=== PATIENT | male | born 1950 | race Caucasian/White ===

== ENCOUNTER 2020-05-15 09:50 | Outpatient (REF) | payer MEDICARE, OTHER, SELFPAY ==
[2020-05-15 10:44] LABS: Hemoglobin 15.4 g/dl (14.0-18.0); Imm Gran Abs Auto 0.02 X10*3/uL (0.00-0.03); Imm Gran Pct Auto 0.3 % (0.0-0.4); MANUAL DIFF FLAG SCAN; PLT CLUMP 1; Red Cell Distribution Width 11.7 % (11.0-16.0); SCAN SMEAR FLAG 1
[2020-05-15 10:46] LABS: Basophils Absolute Auto 0.1 X10*3/uL (0.0-0.2); Basophils Percent Auto 1.2 % (0-2); Eosinophils Absolute Auto 0.2 X10*3/uL (0.0-0.4); Eosinophils Percent Auto 2.2 % (0-4); Hematocrit 45.8 % (42-52); Lymphocytes Percent Auto 28.5 % (20-40); Mean Corpuscular HGB Conc 33.6 g/dl (31.0-36.0); Mean Corpuscular Volume 92.3 fL (80-98); Mean Platelet Volume 11.4 fL (9.4-12.4); Monocytes Absolute Auto 0.5 X10*3/uL (0.1-1.2); Monocytes Percent Auto 7.6 % (2-11); Neutrophils Absolute Auto 4.2 X10*3/uL (2.0-8.3); Neutrophils Percent Auto 60.2 % (45-73); Platelet Count 130 X10*3/uL (160-400); Red Blood Count 4.96 X10*6/uL (4.60-5.80)
[2020-05-15 11:32] LABS: Alanine Aminotransferase 21 U/L (0-40); Albumin Level 3.9 g/dL (3.5-5.0); Alkaline Phosphatase 56 U/L (39-117); Anion Gap 12 (12-20); Aspartate Amino Transferase 20 U/L (5-37); Bilirubin Total 0.5 mg/dL (0.0-1.0); Blood Urea Nitrogen 17 mg/dL (9-16); Calcium 8.7 mg/dL (8.4-10.2); Carbon Dioxide 27 mmol/L (22-29); Chloride 106 mmol/L (96-108); Cholesterol 243 mg/dL; Estimated Glomerular Filt Rate > 60; Glucose Fasting 104 mg/dL (60-99); HDL Cholesterol 51 mg/dL; LDL Cholesterol Calculated 162 mg/dl; Potassium 5.2 mmol/l (3.3-5.1); Sodium 140 mmol/L (135-145); Total Protein 6.3 g/dL (6.5-8.0); Triglycerides 150 mg/dL
== END 2020-05-15 09:51 | disposition home or self-care (01) ==
LOC: HO.10HDL 09:50
PROVIDERS: Visit Provider Internal Medicine
DX: I10 Essential (primary) hypertension (principal); E78.00 Pure hypercholesterolemia, unspecified
CPT/HCPCS: 36415; 80053; 80061; 85025

== ENCOUNTER 2020-07-29 11:29 | Outpatient (REF) | payer MEDICARE, OTHER, SELFPAY | END 2020-07-29 11:30 | disposition home or self-care (01) | LOC: HO.10HDL 11:29 | PROVIDERS: Visit Provider Urology | DX: R97.20 Elevated prostate specific antigen [PSA] (principal) | CPT/HCPCS: 36415; 84153 ==

== ENCOUNTER → 2020-08-02 09:06 | Outpatient (BNVA) | payer MEDICARE, OTHER, SELFPAY | PROVIDERS: PCP Internal Medicine; Visit Provider Urology | DX: R97.20 Elevated prostate specific antigen [PSA] (principal) | CPT/HCPCS: 99212 ==

== ENCOUNTER 2020-12-04 11:33 | Outpatient (REF) | payer MEDICARE, OTHER, SELFPAY ==
[2020-12-04 15:04] LABS: PSA,Total (Free>4and<10) 8.67 ng/mL (0.00-4.00)
[2020-12-05 11:46] LABS: Free Prostate Spec Ag 0.7 ng/mL; Percent Free Prostate Spec Ag 9 % (calc) (>25); Prostate Specific Ag Total 7.6 ng/mL (< OR = 4.0)
== END 2020-12-04 11:34 | disposition home or self-care (01) ==
LOC: HO.10HDL 11:33
PROVIDERS: Visit Provider Urology
DX: R97.20 Elevated prostate specific antigen [PSA] (principal); N40.1 Benign prostatic hyperplasia with lower urinary tract symptoms; N13.8 Other obstructive and reflux uropathy; Z12.5 Encounter for screening for malignant neoplasm of prostate
CPT/HCPCS: 36415; 84153; 84154

== ENCOUNTER → 2020-12-10 13:38 | Outpatient (BNVA) | payer MEDICARE, OTHER, SELFPAY | PROVIDERS: PCP Internal Medicine; Visit Provider Urology | DX: Z13.89 Encounter for screening for other disorder (principal) | CPT/HCPCS: Q3014 ==

== ENCOUNTER 2021-03-18 10:29 | Outpatient (REF) | payer MEDICARE, OTHER, SELFPAY ==
[2021-03-18 13:11] LABS: MANUAL DIFF FLAG NO
[2021-03-18 13:16] LABS: Basophils Percent Auto 0.6 % (0-2); Eosinophils Absolute Auto 0.1 X10*3/uL (0.0-0.4); Eosinophils Percent Auto 1.5 % (0-4); Hematocrit 45.9 % (42-52); Hemoglobin 15.6 g/dl (14.0-18.0); Imm Gran Abs Auto 0.02 X10*3/uL (0.00-0.03); Imm Gran Pct Auto 0.3 % (0.0-0.4); Lymphocytes Absolute Auto 1.6 X10*3/uL (1.2-4.9); Lymphocytes Percent Auto 23.9 % (20-40); Mean Corpuscular Hemoglobin 31.5 pg (27.0-33.0); Mean Corpuscular Volume 92.5 fL (80-98); Monocytes Absolute Auto 0.5 X10*3/uL (0.1-1.2); Monocytes Percent Auto 8.3 % (2-11); Neutrophils Absolute Auto 4.2 X10*3/uL (2.0-8.3); Neutrophils Percent Auto 65.4 % (45-73); Platelet Count 142 X10*3/uL (160-400); Red Blood Count 4.96 X10*6/uL (4.60-5.80); Red Cell Distribution Width 12.2 % (11.0-16.0); White Blood Count 6.5 X10*3/uL (4.8-10.8)
[2021-03-18 13:17] LABS: Glucose Urine UA NEG (NEG); Leukocyte Esterase Urine TRACE (NEG); Nitrite Urine NEG (NEG); Urine Blood NEG (NEG); Urine Ketones NEG (NEG); Urine Protein NEG (NEG-TRACE)
[2021-03-18 13:30] LABS: Appearance Urine CLEAR; Color Urine YELLOW
[2021-03-18 13:31] LABS: RBC Urine 0 /HPF (0); Squamous Epithelial Cell Urine TRACE /LPF
[2021-03-18 13:42] LABS: Alanine Aminotransferase 21 U/L (0-40); Alkaline Phosphatase 55 U/L (39-117); Anion Gap 13 (12-20); Aspartate Amino Transferase 18 U/L (5-37); Bilirubin Total 0.8 mg/dL (0.0-1.0); Blood Urea Nitrogen 16 mg/dL (9-16); Calcium 8.8 mg/dL (8.4-10.2); Carbon Dioxide 25 mmol/L (22-29); Chloride 107 mmol/L (96-108); Cholesterol 231 mg/dL; Estimated Glomerular Filt Rate > 60; Glucose Fasting 107 mg/dL (60-99); HDL Cholesterol 49 mg/dL; LDL Cholesterol Calculated 139 mg/dl; Potassium 4.7 mmol/L (3.3-5.1); Sodium 140 mmol/L (135-145); Total Protein 6.4 g/dL (6.5-8.0); Triglycerides 217 mg/dL
[2021-03-18 14:03] LABS: Prostate Specific Antigen Scr 1.43 ng/mL (<0.05-4.0)
== END 2021-03-18 10:30 | disposition home or self-care (01) ==
LOC: HO.10HDL 10:29
PROVIDERS: PCP Internal Medicine; Visit Provider Internal Medicine
DX: E78.00 Pure hypercholesterolemia, unspecified (principal); I10 Essential (primary) hypertension; R97.20 Elevated prostate specific antigen [PSA]; Z12.5 Encounter for screening for malignant neoplasm of prostate
CPT/HCPCS: 36415; 80053; 80061; 81001; 84153; 85025

== ENCOUNTER 2021-04-09 11:34 | Outpatient (REF) | payer MEDICARE, OTHER, SELFPAY | END 2021-04-09 11:35 | disposition home or self-care (01) | LOC: HO.10HDL 11:34 | PROVIDERS: Visit Provider Urology | DX: N13.8 Other obstructive and reflux uropathy (principal); N40.1 Benign prostatic hyperplasia with lower urinary tract symptoms | CPT/HCPCS: 36415; 84153 ==

== ENCOUNTER → 2021-04-15 09:33 | Outpatient (BNVA) | payer MEDICARE, OTHER, SELFPAY | PROVIDERS: PCP Internal Medicine; Visit Provider Urology | DX: R97.20 Elevated prostate specific antigen [PSA] (principal) | CPT/HCPCS: Q3014 ==

== ENCOUNTER 2021-10-01 11:17 | Outpatient (REF) | payer MEDICARE, OTHER, SELFPAY | END 2021-10-01 11:18 | disposition home or self-care (01) | LOC: HO.10HDL 11:17 | PROVIDERS: Visit Provider Urology | DX: R97.20 Elevated prostate specific antigen [PSA] (principal); N40.1 Benign prostatic hyperplasia with lower urinary tract symptoms; N13.8 Other obstructive and reflux uropathy; Z12.5 Encounter for screening for malignant neoplasm of prostate | CPT/HCPCS: 36415; 84153 ==

== ENCOUNTER → 2021-10-14 14:08 | Outpatient (BNVA) | payer MEDICARE, OTHER, SELFPAY | PROVIDERS: PCP Internal Medicine; Visit Provider Urology | DX: Z13.89 Encounter for screening for other disorder (principal) | CPT/HCPCS: Q3014 ==

== ENCOUNTER 2022-01-15 09:18 | Outpatient (REF) | payer MEDICARE, OTHER, SELFPAY ==
[2022-01-15 10:32] LABS: MANUAL DIFF FLAG NO
[2022-01-15 10:38] LABS: Basophils Absolute Auto 0.1 X10*3/uL (0.0-0.2); Basophils Percent Auto 0.8 % (0-2); Eosinophils Absolute Auto 0.1 X10*3/uL (0.0-0.4); Eosinophils Percent Auto 1.5 % (0-4); Hematocrit 45.4 % (42.0-52.0); Hemoglobin 15.1 g/dl (14.0-18.0); Imm Gran Abs Auto 0.02 X10*3/uL (0.00-0.03); Imm Gran Pct Auto 0.3 % (0.0-0.4); Lymphocytes Absolute Auto 1.7 X10*3/uL (1.2-4.9); Lymphocytes Percent Auto 23.9 % (20-40); Mean Corpuscular HGB Conc 33.3 g/dl (31.0-36.0); Mean Corpuscular Hemoglobin 30.6 pg (27.0-33.0); Mean Corpuscular Volume 91.9 fL (80.0-98.0); Mean Platelet Volume 11.6 fL (9.4-12.4); Monocytes Absolute Auto 0.5 X10*3/uL (0.1-1.2); Monocytes Percent Auto 7.2 % (2-11); Neutrophils Absolute Auto 4.8 x10*3/uL (2.0-8.3); Neutrophils Percent Auto 66.3 % (45-73); Platelet Count 133 X10*3/uL (160-400); Red Blood Count 4.94 X10*6/uL (4.60-5.80); Red Cell Distribution Width 11.9 % (11.0-16.0); White Blood Count 7.2 X10*3/uL (4.8-10.8)
[2022-01-15 11:12] LABS: Alanine Aminotransferase 21 U/L (0-40); Albumin Level 3.8 g/dL (3.5-5.0); Alkaline Phosphatase 66 U/L (39-117); Anion Gap 10 (12-20); Aspartate Amino Transferase 17 U/L (5-37); Bilirubin Total 0.7 mg/dL (0.0-1.0); Blood Urea Nitrogen 16 mg/dL (9-16); Calcium 8.7 mg/dL (8.4-10.2); Carbon Dioxide 28 mmol/L (22-29); Chloride 105 mmol/L (96-108); Cholesterol 218 mg/dL; Estimated Glomerular Filt Rate > 60; Glucose Fasting 102 mg/dL (60-99); HDL Cholesterol 41 mg/dL; LDL Cholesterol Calculated 160 mg/dl; Potassium 4.6 mmol/L (3.3-5.1); Sodium 138 mmol/L (135-145); Triglycerides 89 mg/dL
== END 2022-01-15 09:19 | disposition home or self-care (01) ==
LOC: HO.10HDL 09:18
PROVIDERS: Visit Provider Internal Medicine
DX: I10 Essential (primary) hypertension (principal); E78.00 Pure hypercholesterolemia, unspecified
CPT/HCPCS: 36415; 80053; 80061; 85025

== ENCOUNTER 2022-04-08 11:29 | Outpatient (REF) | payer MEDICARE, OTHER, SELFPAY ==
[2022-04-08 14:40] LABS: PSA,Total (Free>4and<10) 0.75 ng/mL (0.00-4.00)
== END 2022-04-08 11:30 | disposition home or self-care (01) ==
LOC: HO.10HDL 11:29
PROVIDERS: Visit Provider Urology
DX: N40.1 Benign prostatic hyperplasia with lower urinary tract symptoms (principal); N13.8 Other obstructive and reflux uropathy; Z12.5 Encounter for screening for malignant neoplasm of prostate
CPT/HCPCS: 36415; 84153

== ENCOUNTER → 2022-04-17 12:51 | Outpatient (BNVA) | payer MEDICARE, OTHER, SELFPAY | PROVIDERS: PCP Internal Medicine; Visit Provider Urology | DX: N40.0 Benign prostatic hyperplasia without lower urinary tract symptoms (principal); R97.20 Elevated prostate specific antigen [PSA] | CPT/HCPCS: Q3014 ==

== ENCOUNTER 2022-08-12 07:04 | Day surgery (SDC) | payer MEDICARE, OTHER, SELFPAY ==
--- NOTE | 2022-08-11 13:15 | HO.ANESPROP2 ---
Documented by User: Nga Fuchs NP 08/11/22 13:20 HPI - Anesthesia Eval Consult details Narrative: 72yo M for Colonoscopy PMF Active Problems Active Problems: All Active Problems (Updated 08/11/22 @ 12:35 by Hollie Villa RN) Elevated PSA (Acute) BPH (benign prostatic hyperplasia) (Acute) Past Medical History Medical History BPH (benign prostatic hyperplasia) Elevated PSA Enlarged prostate with lower urinary tract symptoms (LUTS) Erectile dysfunction HTN (hypertension) Hyperlipidemia Nocturia Tubular adenoma Surgical History Surgical History H/O oral surgery History of surgery Social History Social History Patient Tobacco Use Status: Current everyday Tobacco user Tobacco use type: Cigar Cigarettes Per Day: 2 Use of substances other than those prescribed or required for medical reasons: No Are you DNR?: No Advance Directives: No Advance Directives Information Provided: Yes Meds Allergies Allergy/AdvReac Type Severity Reaction Status Date / Time Vaseline Allergy Unknown swelling Uncoded 04/16/22 15:17 Home Medications Medication Instructions Recorded Confirmed Last Taken Type atenolol 50 mg tablet 50 mg PO DAILY 04/15/21 Unknown History Exam Exam Date and Time: August 11, 2022 1315 Assessment and Plan Assessment Anesthesia Assessment: Chart Reviewed Documented by User: Jodi Viramontes MD 08/12/22 07:52 [facility] Past Medical History Medical History BPH (benign prostatic hyperplasia) Elevated PSA Enlarged prostate with lower urinary tract symptoms (LUTS) Erectile dysfunction HTN (hypertension) Hyperlipidemia Nocturia Tubular adenoma Family History Family history of problems with anesthesia: No Surgical History Surgical History H/O oral surgery History of surgery History of Problems with Anesthesia: No Social History Social History Patient Tobacco Use Status: Current everyday Tobacco user Tobacco use type: Cigar Cigarettes Per Day: 2 Use of substances other than those prescribed or required for medical reasons: No Are you DNR?: No Advance Directives: No Advance Directives Information Provided: Yes Meds Allergies Allergy/AdvReac Type Severity Reaction Status Date / Time Vaseline Allergy Unknown swelling Uncoded 04/16/22 15:17 Home Medications Medication Instructions Recorded Confirmed Last Taken Type atenolol 50 mg tablet 50 mg PO DAILY 04/15/21 Unknown History Exam Airway Mallampati Class: II TM Dist: >3cm Neck ROM: Full Denture: Upper and Lower Heart: RR Lungs: CTA Assessment and Plan Final Anesthetic Review Family History of Problems with Anesthesia: No History of Problems with Anesthesia: No NPO: Yes ASA Class: II Final Preanesthetic Review: No Changes in Pt Med Stat, Meds/Allgs Chart Reviewed, Consent Obtained/Reviewed and Anes Risks/Benef Reviewed Patient Risk: Low Procedure Risk: Low Anesthetic Plan Anesthetic Plan: MAC: Disposition: Standard PACU
[2022-08-12 07:24] VITALS: BMI 27.6
[2022-08-12 07:39] VITALS: BP 127/74; PULSE 62; RESP 16; TEMP 36.5; O2SAT 98
[2022-08-12] MEDS: Lactated Ringers 1,000 ML 100 ML IVCONT (07:52)
[2022-08-12 08:58] VITALS: BP 113/63; PULSE 63; RESP 18; TEMP 36.4; O2SAT 97
--- NOTE | 2022-08-12 09:01 | P.BOP_ITS ---
Brief Operative Note Date of Service: 08/12/22 Pre-op diagnosis: Screening Post-op diagnosis: other (Colon polyps) Procedure: Colonoscopy to the cecum and TI with hot snare polypectomy x 4 with placement of 1 Resolution clip on one of the rectal polypectomy sites Surgeon: Kevin Porras Anesthesia: MAC Was an Furniture Painter used for this Procedure?: No Estimated blood loss (mL): 2.0 Pathology: other (A. Transverse colon polyp B. Rectal polyps ) Condition: stable Disposition: PACU
[2022-08-12 09:13] VITALS: BP 127/67; PULSE 58; RESP 18; TEMP 36.1; O2SAT 97
--- NOTE | 2022-08-12 10:14 | OP_ITS ---
SURGEON: Kevin Porras MD INDICATIONS: The patient presents for evaluation of colorectal cancer screening and personal history of tubular adenoma of the colon. Full consent has been obtained from him for this, including risks of bleeding and perforation. PREOPERATIVE DIAGNOSIS: Colorectal cancer screening and personal history of tubular adenoma of the colon. POSTOPERATIVE DIAGNOSIS: Colorectal cancer screening and personal history of tubular adenoma of the colon, colon polyps, diverticulosis, internal hemorrhoids. PROCEDURE PERFORMED: Colonoscopy to the cecum and terminal ileum with hot snare polypectomy x4 and placement of a single Resolution clip on one of the rectal polypectomy sites. ESTIMATED BLOOD LOSS: COMPLICATIONS: ANESTHESIA: Medication Used: Monitored anesthesia care. ASSISTANTS: SPECIMENS: DESCRIPTION OF PROCEDURE: The patient was placed in the left lateral decubitus position. The digital rectal exam revealed no abnormalities. The Olympus video pediatric colonoscope was entered into the rectum and advanced to the cecum with the assistance of abdominal wall pressure. Once in the cecum, I did identify normal-appearing cecal pouch with appendiceal orifice and a normal-appearing ileocecal valve. The terminal ileum was cannulated and appeared normal. The scope was withdrawn back in the colon. The entire cecum and the ileocecal valve appeared normal. The scope was then slowly withdrawn assessing all mucosal surfaces carefully. For the most part, preparation was very good throughout the colon, although there was some residual liquid and solid stool in the sigmoid colon, which was all irrigated and suctioned away as best as possible. In the transverse colon, was an approximately 5 mm grossly adenomatous polyp, which was removed by hot snare polypectomy and recovered by suction. The polypectomy site appeared clean, without any sign of residual polyp nor bleeding. I did not visualize any sign of colitis nor angiodysplasia. There was a mild amount of diverticulosis in the ascending colon and a moderate amount of diverticulosis in the sigmoid colon. In the rectum, there were three polyps. One was approximately 12 to 15 mm in size and somewhat friable. This was removed by hot snare polypectomy and recovered by withdrawing it on the tip of the scope. The scope was advanced back to the polypectomy site, which appeared clean, without any sign of residual polyp nor bleeding. A single resolution clip was applied to the polypectomy site with good deployment and good hemostasis. Also in the rectum, were two polyps between 8 and 10 mm in size, which were each snared with the hot snare polypectomy and recovered by suction. Both polypectomy sites appeared clean, without any sign of residual polyp nor bleeding. The scope was retroflexed visualizing some small internal hemorrhoids, but no other pathology. The scope was straightened and withdrawn from the patient. He tolerated the procedure well and was returned to the recovery area in stable condition. IMPRESSION: 1. Colon polyps. 2. Diverticulosis. 3. Internal hemorrhoids. PLAN: The results of the pathology will be checked. I would recommend a repeat colonoscopy in 3 years for further surveillance. He was advised not to use any aspirin or NSAIDs for at least 1 week. MD OLYA Rodriguez/NASIM / [id number]
--- NOTE | 2022-08-12 11:49 | HO.ANESPROP2 ---
HPI - Anesthesia Eval Consult details Narrative: screening colon PMF Active Problems Active Problems: All Active Problems (Updated 08/11/22 @ 12:35 by Hollie Villa, RN) Elevated PSA (Acute) BPH (benign prostatic hyperplasia) (Acute) Past Medical History Medical History BPH (benign prostatic hyperplasia) Elevated PSA Enlarged prostate with lower urinary tract symptoms (LUTS) Erectile dysfunction HTN (hypertension) Hyperlipidemia Nocturia Tubular adenoma Family History Family history of problems with anesthesia: No Surgical History Surgical History H/O oral surgery History of surgery History of Problems with Anesthesia: No Social History Social History Patient Tobacco Use Status: Current everyday Tobacco user Tobacco use type: Cigar Cigarettes Per Day: 2 Use of substances other than those prescribed or required for medical reasons: No Are you DNR?: No Advance Directives: No Advance Directives Information Provided: Yes Meds Allergies Allergy/AdvReac Type Severity Reaction Status Date / Time Vaseline Allergy Unknown swelling Uncoded 04/16/22 15:17 Home Medications Medication Instructions Recorded Confirmed Last Taken Type atenolol 50 mg tablet 50 mg PO DAILY 04/15/21 08/12/22 Unknown History flaxseed oil PO DAILY 08/12/22 Unknown History Exam Exam Date and Time: August 12, 2022 1149 Height,Weight and Vital Signs: Height 5 ft 10.5 in Weight 88.451 kg Last Vital Signs Temp 97 F 08/12/22 09:13 Pulse 58 08/12/22 09:13 Resp 18 08/12/22 09:13 BP 127/67 08/12/22 09:13 Pulse Ox 97 08/12/22 09:13 O2 Del Method 08/12/22 09:13 Airway Mallampati Class: II TM Dist: >3cm Neck ROM: Full Denture: Upper and Lower Heart: rr Lungs: cta Assessment and Plan Assessment Anesthesia Assessment: Anesthesia Plan Discussed and Chart Reviewed Final Anesthetic Review Family History of Problems with Anesthesia: No History of Problems with Anesthesia: No NPO: Yes ASA Class: II Final Preanesthetic Review: No Changes in Pt Med Stat, Meds/Allgs Chart Reviewed, Consent Obtained/Reviewed and Anes Risks/Benef Reviewed Patient Risk: Low Procedure Risk: Low Anesthetic Plan Anesthetic Plan: MAC: Disposition: Standard PACU
== END 2022-08-12 10:13 | disposition home or self-care (01) ==
PROVIDERS: PCP Internal Medicine; Visit Provider Internal Medicine
PROC: 0DJD8ZZ Inspection of Lower Intestinal Tract, Via Natural or Artificial Opening Endoscopic (ICD-10-PCS; CPT 45378; principal; 2022-08-12 08:30)
DX: Z12.11 Encounter for screening for malignant neoplasm of colon (principal); Z86.010 Personal history of colon polyps; D12.8 Benign neoplasm of rectum; K63.5 Polyp of colon; K57.30 Diverticulosis of large intestine without perforation or abscess without bleeding; K64.8 Other hemorrhoids; I10 Essential (primary) hypertension; N40.0 Benign prostatic hyperplasia without lower urinary tract symptoms; Z79.899 Other long term (current) drug therapy; F17.210 Nicotine dependence, cigarettes, uncomplicated
CPT/HCPCS: 45385; 88305

== ENCOUNTER 2022-10-08 09:46 | Outpatient (REF) | payer MEDICARE, OTHER, SELFPAY ==
[2022-10-08 10:55] LABS: MANUAL DIFF FLAG NO
[2022-10-08 11:02] LABS: Basophils Absolute Auto 0.1 X10*3/uL (0.0-0.2); Basophils Percent Auto 1.1 % (0-2); Eosinophils Absolute Auto 0.1 X10*3/uL (0.0-0.4); Eosinophils Percent Auto 1.5 % (0-4); Hematocrit 46.8 % (42.0-52.0); Hemoglobin 15.9 g/dl (14.0-18.0); Imm Gran Abs Auto 0.03 X10*3/uL (0.00-0.03); Imm Gran Pct Auto 0.4 % (0.0-0.4); Lymphocytes Absolute Auto 1.9 X10*3/uL (1.2-4.9); Lymphocytes Percent Auto 25.9 % (20-40); Mean Corpuscular Hemoglobin 31.2 pg (27.0-33.0); Mean Corpuscular Volume 91.8 fL (80.0-98.0); Mean Platelet Volume 11.7 fL (9.4-12.4); Monocytes Absolute Auto 0.6 X10*3/uL (0.1-1.2); Monocytes Percent Auto 7.5 % (2-11); Neutrophils Absolute Auto 4.7 x10*3/uL (2.0-8.3); Neutrophils Percent Auto 63.6 % (45-73); Platelet Count 144 X10*3/uL (160-400); Red Cell Distribution Width 11.6 % (11.0-16.0); White Blood Count 7.4 X10*3/uL (4.8-10.8)
[2022-10-08 12:14] LABS: Alanine Aminotransferase 21 U/L (0-40); Albumin Level 3.9 g/dL (3.5-5.0); Alkaline Phosphatase 55 U/L (39-117); Anion Gap 10 (12-20); Aspartate Amino Transferase 18 U/L (5-37); Bilirubin Total 0.8 mg/dL (0.0-1.0); Blood Urea Nitrogen 18 mg/dL (9-16); Carbon Dioxide 30 mmol/L (22-29); Chloride 105 mmol/L (96-108); Estimated Glomerular Filt Rate > 60; Glucose Random 96 mg/dL (60-115); Sodium 140 mmol/L (135-145); Total Protein 6.2 g/dL (6.5-8.0)
== END 2022-10-08 09:47 | disposition home or self-care (01) ==
LOC: HO.10HDL 09:46
PROVIDERS: Visit Provider Internal Medicine
DX: J44.9 Chronic obstructive pulmonary disease, unspecified (principal); N40.0 Benign prostatic hyperplasia without lower urinary tract symptoms; K63.5 Polyp of colon; D69.6 Thrombocytopenia, unspecified
CPT/HCPCS: 36415; 80053; 85025

== ENCOUNTER 2023-04-07 10:13 | Outpatient (REF) | payer MEDICARE, OTHER, SELFPAY ==
[2023-04-07 14:26] LABS: Prostate Specific Antigen 0.72 ng/mL (<0.05-4.0)
== END 2023-04-07 10:14 | disposition home or self-care (01) ==
LOC: HO.10HDL 10:13
PROVIDERS: Visit Provider Urology
DX: Z12.5 Encounter for screening for malignant neoplasm of prostate (principal); N40.0 Benign prostatic hyperplasia without lower urinary tract symptoms
CPT/HCPCS: 36415; 84153

== ENCOUNTER 2023-04-20 11:09 | Outpatient (AMB) | payer MEDICARE, OTHER, SELFPAY ==
--- NOTE | 2023-04-20 11:29 | A.OFFVIS_ITS ---
Intake Intake Visit Reasons: 1Y PSA(set) Intake Note: Patient is Present for Follow Up PSA/PVR Urology Medication: Finasteride Antibiotic Allergies: None Blood Thinners: None Pharmacy: [facility] PVR: 67 Allergies Vaseline Allergy (Unknown, Uncoded 04/20/23 11:37) swelling Medication List - Last Reconciled 04/20/23 by Kalen Watkins MD atenolol 50 mg PO DAILY finasteride 5 mg PO DAILY 90 days [flaxseed oil PO DAILY] HPI HPI Comments History of Present Illness Details Remi has a very pleasant male. He is a patient of Dr. Padilla. He seen for the following urologic condition - elevated PSA - bladder outlet obstruction PSA remains low Effective urinary parameters - minimal nocturia Improved bladder emptying and stronger stream Follow 12 months PSA Reduce finasteride every other day - Wednesday, Wednesday, Wednesday Lower urinary tract symptoms Current visit for further evaluation of lower urinary tract symptoms Primary symptom is nocturia x2, improved stream, better emptying Initial symptoms - Weak stream, Incomplete emptying Current therapy finasteride Prior biopsy for elevated PSA 11/13 PSA 08/15 PSA 12.6, negative biopsy, 04/15 1.6, 10/14 1.7, 04/16 0.75, 04/17 0.72 Therapeutic plan continue finasteride review in 12 months [facility] Medical History HTN (hypertension) Tubular adenoma Hyperlipidemia BPH (benign prostatic hyperplasia) Nocturia Erectile dysfunction Enlarged prostate with lower urinary tract symptoms (LUTS) Elevated PSA Surgical History H/O oral surgery History of surgery Social History Patient Tobacco Use Status: Current everyday Tobacco user Tobacco use type: Cigar Cigarettes Per Day: 2 Review of Systems Const Denies chills and Denies fever(s) Card Reports no additional complaints and Denies syncope Resp Denies cough GI Denies abdominal pain and Denies heartburn Reports as per HPI and Denies change in libido Neuro Denies syncope Psych Denies change in libido Endo Denies change in libido Physical Exam Const General: cooperative, healthy appearing, comfortable and no acute distress Orientation/consciousness: patient oriented x3 HEENT Face and sinus: Yes normal facial exam Mouth: moist mucous membranes Neck Neck: Yes normal visual inspection, Yes full ROM and Yes trachea midline Chest Chest palpation & inspection: normal inspection of the chest Resp Effort & Inspection: normal respiratory effort, able to speak in complete sentences and no respiratory distress GI Inspection: Yes normal to inspection Back/Spine/Pelvis Cervical Spine: normal cervical lordosis Thoracic/Lumbar Spine: thoracic and lumbar spine normal to inspection Skin General skin exam: no rashes or lesions noted Neuro General: patient oriented x3, gait normal, tone normal and moves all extremities Extrem General: Yes normal to inspection and Yes capillary refill normal Office Procedures Post Void Residual Post Residual Void Post Void Residual (PVR): 67 33070-Cfbr Void Residual by ultrasound Results AMB Urinalysis, Automated UA Leukoctes 0 Jena/uL Last Edit by Aylin Bernal Courtney on 04/20/23 11:39 UA Nitrite Negative Last Edit by Aylin Bernal [facility] on 04/20/23 11:39 UA Urobilinogen 0.2 mg/dL Last Edit by Aylin Bernal [facility] on 04/20/23 11:3 9 UA Protein 15 mg/dL Last Edit by Aylin Bernal [facility] on 04/20/23 11:39 UA pH 7.0 Last Edit by Aylin Bernal [facility] on 04/20/23 11:39 UA Blood 0 Neftaly/uL Last Edit by Aylin Bernal [facility] on 04/20/23 11:39 UA Specific [place] 1.010 Last Edit by Aylin Bernal [facility] on 04/20/23 11: 39 UA Ketone Negative Last Edit by Aylin Bernal [facility] on 04/20/23 11:39 UA Bilirubin 0 mg/dL Last Edit by Aylin Bernal [facility] on 04/20/23 11:39 UA Glucose 0 mg/dL Last Edit by Aylin Bernal [facility] on 04/20/23 11:39 Results Reviewed Results Reviewed: Laboratory Last Values Urine pH (Auto) 7.0 04/20/23 11:38 Specific [place] (Auto) 1.010 04/20/23 11:38 Urine Protein (Auto) 15 mg/dL 04/20/23 11:38 Glucose (UA)(Auto) 0 mg/dL 04/20/23 11:38 Urine Ketones (Auto) Negative 04/20/23 11:38 Urine Blood (Auto) 0 Neftaly/uL 04/20/23 11:38 Urine Nitrite (Auto) Negative 04/20/23 11:38 Urine Bilirubin (Auto) 0 mg/dL 04/20/23 11:38 Urine Urobilinogen (Auto) 0.2 mg/dL 04/20/23 11:38 Leukocyte Esterase (Auto) 0 Jena/uL 04/20/23 11:38 Assessment & Plan Assessment & Plan (1) Elevated PSA: Code(s): R97.20 - Elevated prostate specific antigen [PSA] (2) BPH (benign prostatic hyperplasia): Code(s): N40.0 - Benign prostatic hyperplasia without lower urinary tract symptoms Plan Twelve month follow-up Orders: Orders Prostate Specific Antigen 364 Days N40.0 - Benign prostatic hyperplasia without lower urinary tract symptoms AMB Post Void Residual by ultrasound Today N40.0 - Benign prostatic hyperplasia without lower urinary tract symptoms AMB Urinalysis Automated Today Z13.9 - Encounter for screening, unspecified Patient Instructions: Imaging studies, laboratory and physical exam results were discussed and reviewed in detail. No major barriers to patient understanding were identified. An opportunity to ask questions regarding the treatment plan was provided. All questions were answered. The patient expressed understanding and agreement with the above treatment plan. The patient is aware they should contact our office by phone for worsening of their current condition or the appearance of new urologic symptoms. Compliance is encouraged with any medications and followup testing that is ordered. It is a privilege to participate in the urologic care of your patient. If you have any questions or concerns regarding treatment for the above conditions, or other urologic issues, please do not hesitate to contact me. The office telephone contact is [phone]. This note is constructed using voice recognition software. While every effort has been made to ensure accuracy plate molder errors may have been included. Yours sincerely, Dr Kalen Watkins MD, [place] [facility] - Urology Providers of Expert, Compassionate Care for the Genitourinary System Coding Level of Care Code Est Pt Level 4 (64647) Diagnoses Elevated PSA R97.20 BPH (benign prostatic hyperplasia) N40.0 CPT Codes Post Residual Void - PVR CPT Code: 22616-Vgxf Void Residual by ultrasound ([id number])
== END 2023-04-20 12:02 | disposition home or self-care (01) ==
PROVIDERS: PCP Internal Medicine; Visit Provider Urology
DX: R97.20 Elevated prostate specific antigen [PSA] (principal); N40.0 Benign prostatic hyperplasia without lower urinary tract symptoms; Z13.9 Encounter for screening, unspecified
CPT/HCPCS: 99214

== ENCOUNTER → 2023-04-20 11:09 | Outpatient (BNVA) | payer MEDICARE, OTHER, SELFPAY | PROVIDERS: Visit Provider Urology | DX: N40.0 Benign prostatic hyperplasia without lower urinary tract symptoms (principal); R97.20 Elevated prostate specific antigen [PSA]; N32.0 Bladder-neck obstruction | CPT/HCPCS: 51798; 81003; 99212 ==

== ENCOUNTER 2023-06-10 08:43 | Outpatient (REF) | payer MEDICARE, OTHER, SELFPAY ==
[2023-06-10 10:33] LABS: MANUAL DIFF FLAG NO
[2023-06-10 10:40] LABS: Basophils Absolute Auto 0.1 X10*3/uL (0.0-0.2); Basophils Percent Auto 1.3 % (0-2); Eosinophils Absolute Auto 0.1 X10*3/uL (0.0-0.4); Eosinophils Percent Auto 1.9 % (0-4); Hematocrit 45.6 % (42.0-52.0); Hemoglobin 15.5 g/dl (14.0-18.0); Imm Gran Abs Auto 0.01 X10*3/uL (0.00-0.03); Imm Gran Pct Auto 0.1 % (0.0-0.4); Lymphocytes Absolute Auto 1.6 X10*3/uL (1.2-4.9); Lymphocytes Percent Auto 23.8 % (20-40); Mean Corpuscular Hemoglobin 31.3 pg (27.0-33.0); Mean Corpuscular Volume 92.1 fL (80.0-98.0); Mean Platelet Volume 11.7 fL (9.4-12.4); Monocytes Absolute Auto 0.5 X10*3/uL (0.1-1.2); Monocytes Percent Auto 8.1 % (2-11); Neutrophils Absolute Auto 4.3 x10*3/uL (2.0-8.3); Neutrophils Percent Auto 64.8 % (45-73); Platelet Count 137 X10*3/uL (160-400); Red Blood Count 4.95 X10*6/uL (4.60-5.80); Red Cell Distribution Width 11.5 % (11.0-16.0); White Blood Count 6.7 X10*3/uL (4.8-10.8)
[2023-06-10 10:50] LABS: Alanine Aminotransferase 31 U/L (0-40); Albumin Level 3.8 g/dL (3.5-5.0); Alkaline Phosphatase 59 U/L (39-117); Anion Gap 9 (12-20); Aspartate Amino Transferase 25 U/L (5-37); Bilirubin Total 0.7 mg/dL (0.0-1.0); Blood Urea Nitrogen 14 mg/dL (9-16); Carbon Dioxide 29 mmol/L (22-29); Chloride 108 mmol/L (96-108); Cholesterol 259 mg/dL (<200); Estimated Glomerular Filt Rate > 60; Glucose Fasting 104 mg/dL (60-99); HDL Cholesterol 47 mg/dL (>40); LDL Cholesterol Calculated 185 mg/dL (<100); Potassium 4.7 mmol/L (3.3-5.1); Sodium 141 mmol/L (135-145); Total Protein 6.5 g/dL (6.5-8.0); Triglycerides 137 mg/dL (<150)
[2023-06-10 11:10] LABS: Prostate Specific Antigen Scr 0.55 ng/mL (<0.05-4.0)
== END 2023-06-10 08:44 | disposition home or self-care (01) ==
LOC: HO.10HDL 08:43
PROVIDERS: Visit Provider Internal Medicine
DX: Z12.5 Encounter for screening for malignant neoplasm of prostate (principal); I10 Essential (primary) hypertension; N40.0 Benign prostatic hyperplasia without lower urinary tract symptoms; E78.00 Pure hypercholesterolemia, unspecified; J44.9 Chronic obstructive pulmonary disease, unspecified; R79.89 Other specified abnormal findings of blood chemistry
CPT/HCPCS: 36415; 80053; 80061; 84153; 85025

== ENCOUNTER 2024-04-11 10:01 | Outpatient (REF) | payer MEDICARE, OTHER, SELFPAY ==
[2024-04-11 11:40] LABS: Prostate Specific Antigen 0.76 ng/mL (<0.05-4.0)
== END 2024-04-11 10:02 | disposition home or self-care (01) ==
LOC: HO.10HDL 10:01
PROVIDERS: Visit Provider Urology
DX: Z12.5 Encounter for screening for malignant neoplasm of prostate (principal); N40.0 Benign prostatic hyperplasia without lower urinary tract symptoms
CPT/HCPCS: 36415; 84153

== ENCOUNTER 2024-04-19 09:24 | Outpatient (AMB) | payer MEDICARE, OTHER, SELFPAY ==
--- NOTE | 2024-04-19 09:26 | A.OFFVIS_ITS ---
Intake Visit Reasons: 1Y Follow Up-PVR/PSA(set) Intake Note: Patient is Present for PVR/PSA Urology Med:Finasteride Antibiotic Allergy:None Blood Thinner:None Last PVR: 67 Todays PVR: 36 Recent PSA: 04/11/24- 0.76 Business Resiliency Manager Required: No Accompanied by: Self / Same As Patient Allergies Vaseline Allergy (Unknown, Uncoded 04/19/24 09:28) swelling HPI Comments Details: Remi has a very pleasant male. He is a patient of Dr. Padilla. He seen for the following urologic condition - elevated PSA - bladder outlet obstruction PSA remains low Effective urinary parameters - minimal nocturia Improved bladder emptying and stronger stream Follow 12 months PVR Reduce finasteride every other day - Wednesday, Wednesday, Wednesday Lower urinary tract symptoms Current visit for further evaluation of lower urinary tract symptoms Primary symptom is nocturia x2, improved stream, better emptying Initial symptoms - Weak stream, Incomplete emptying Current therapy finasteride Prior biopsy for elevated PSA 11/13 PSA 08/15 PSA 12.6, negative biopsy, 04/15 1.6, 10/14 1.7, 04/16 0.75, 04/17 0.72, 04/18 0.76 Therapeutic plan continue finasteride review in 12 months [facility] Medical History HTN (hypertension) Tubular adenoma Hyperlipidemia BPH (benign prostatic hyperplasia) Nocturia Erectile dysfunction Enlarged prostate with lower urinary tract symptoms (LUTS) Elevated PSA Surgical History H/O oral surgery History of surgery Social History Patient Tobacco Use Status: Current everyday Tobacco user Tobacco use type: Cigar Cigarettes Per Day: 2 Review of Systems Const Denies chills and Denies fever(s) Card Reports no additional complaints and Denies syncope Resp Denies cough GI Denies abdominal pain and Denies heartburn Reports as per HPI and Denies change in libido Neuro Denies syncope Psych Denies change in libido Endo Denies change in libido Physical Exam Const General: cooperative, healthy appearing, comfortable and no acute distress Orientation/consciousness: patient oriented x3 HEENT Face and sinus: Yes normal facial exam Mouth: moist mucous membranes Neck Neck: Yes normal visual inspection, Yes full ROM and Yes trachea midline Chest Chest palpation & inspection: normal inspection of the chest Resp Effort & Inspection: normal respiratory effort, able to speak in complete sentences and no respiratory distress GI Inspection: Yes normal to inspection Back/Spine/Pelvis Cervical Spine: normal cervical lordosis Thoracic/Lumbar Spine: thoracic and lumbar spine normal to inspection Skin General skin exam: no rashes or lesions noted Neuro General: patient oriented x3, gait normal, tone normal and moves all extremities Extrem General: Yes normal to inspection and Yes capillary refill normal Office Procedures Post Void Residual Post Residual Void Post Void Residual (PVR): 36 [id number]-Ytrt Void Residual by ultrasound Assessment & Plan Assessment & Plan (1) Elevated PSA: Code(s): R97.20 - Elevated prostate specific antigen [PSA] Category: Medical (2) BPH (benign prostatic hyperplasia): Code(s): N40.0 - Benign prostatic hyperplasia without lower urinary tract symptoms Category: Medical Plan Twelve month follow-up PVR Orders: Orders AMB Post Void Residual by ultrasound Today N40.0 - Benign prostatic hyperplasia without lower urinary tract symptoms Patient Instructions: Imaging studies, laboratory and physical exam results were discussed and revie wed in detail. No major barriers to patient understanding were identified. An opportunity to ask questions regarding the treatment plan was provided. All questions were answered. The patient expressed understanding and agreement with the above treatment plan. The patient is aware they should contact our office by phone for worsening of their current condition or the appearance of new urologic symptoms. Compliance is encouraged with any medications and followup testing that is ordered. It is a privilege to participate in the urologic care of your patient. If you have any questions or concerns regarding treatment for the above conditions, or other urologic issues, please do not hesitate to contact me. The office telephone contact is [phone]. This note is constructed using voice recognition software. While every effort has been made to ensure accuracy network design architect errors may have been included. Yours sincerely, Dr Kalen Watkins MD, [place] [facility] - Urology Providers of Expert, Compassionate Care for the Genitourinary System Coding Level of Care Code Est Pt Level 4 (64754) Diagnoses Elevated PSA R97.20 BPH (benign prostatic hyperplasia) N40.0 CPT Codes Post Residual Void - PVR CPT Code: 41702-Chnj Void Residual by ultrasound ([id number])
== END 2024-04-19 10:13 | disposition home or self-care (01) ==
PROVIDERS: PCP Internal Medicine; Visit Provider Urology
DX: R97.20 Elevated prostate specific antigen [PSA] (principal); N40.0 Benign prostatic hyperplasia without lower urinary tract symptoms
CPT/HCPCS: 99214

== ENCOUNTER → 2024-04-19 09:24 | Outpatient (BNVA) | payer MEDICARE, OTHER, SELFPAY | PROVIDERS: PCP Internal Medicine; Visit Provider Urology | DX: R97.20 Elevated prostate specific antigen [PSA] (principal); N40.0 Benign prostatic hyperplasia without lower urinary tract symptoms | CPT/HCPCS: 51798; 99212 ==

== ENCOUNTER 2024-10-02 09:06 | Outpatient (REF) | payer MEDICARE, OTHER, SELFPAY ==
--- OUTSIDE RECORDS SUMMARY | 2024-10-02 09:41 | XMS_ITS | Patient Health Record ---
Author Organization [facility] Address [address] [place] [address] Care Team Providers Care Polisher Dial Name Role Phone Maverick Padilla MD Primary Care Provider Kevin [place] Unavailable [phone] Allergies Allergen (clinical drug ingredient) Drug/Non Drug Allergy documented on EMR Reaction Allergy Type Onset Date Status Aloe Unknown Drug Allergy Active Vaseline ? (uncoded) Unknown Allergy Active Reason For Referral No Information Medications Medication SIG (Take, Route, Fr equency, Duration) Notes Start Date End Date Status Finasteride 5 MG Oral for 90 A ctive Atenolol 50 MG 1 tablet Orally Once a day Active Flaxseed Oil 1200 MG as directed Orally Active Immunizations Vaccine Route Administration Date Status Comme nts Influenza Unknown 06/11/2022 Refused Problems Problem Type SNOMED Code ICD Code Onset Dates Problem Status W/U Status Risk Notes Problem 436076124 Encounter for screening for malignant neoplasm of colon (Z12.11) Active confirmed Problem History of adenomatous polyp of colon (050561908) History of adenomatous polyp of colon (Z86.010) Active confirmed Problem Diverticular disease of colon (671347353) Diverticulosis of large intestine without perforation or abscess without bleeding (K57.30) Active confirmed Problem 69402669 Preprocedural examination (Z01.818) Active confirmed Problem 742759916 Colon adenomas (D12.6) Active confirmed Problem 270437574 History of colon polyps (Z86.010) Active confirmed Plan Of Treatment Future Test Test Name Order Date COLONOSCOPY 05/21/2015 COLONOSCOPY 06/11/2022 Insurance Providers Payer Name Payer Address Payer Phone Subscriber Number Group Number Insured Name Patient Relationship to Insured Coverage Start Date Coverage End Date MEDICARE OF [place] [address] [place] [address] [id number] LARON GARNER Self - patient is the insured [facility] [address] [place] [phone] [id number] LARON GARNER Self - patient is the insured Medical (General) History Medical History History ICD Code Tubular adenomas removed in 2004, 2009, 06/2015. Denies MD,DM,CVA,Lung disease,renal dise ase HTN BPH Surgical History Surgery Date(Month/Year) Oral surgery
[2024-10-02 10:25] LABS: MANUAL DIFF FLAG NO
[2024-10-02 10:28] LABS: Basophils Absolute Auto 0.1 X10*3/uL (0.0-0.2); Basophils Percent Auto 1.4 % (0-2); Eosinophils Absolute Auto 0.1 X10*3/uL (0.0-0.4); Eosinophils Percent Auto 1.6 % (0-4); Hemoglobin 15.8 g/dl (14.0-18.0); Imm Gran Abs Auto 0.01 X10*3/uL (0.00-0.03); Imm Gran Pct Auto 0.1 % (0.0-0.4); Lymphocytes Absolute Auto 1.8 X10*3/uL (1.2-4.9); Mean Corpuscular HGB Conc 35.1 g/dl (31.0-36.0); Mean Corpuscular Hemoglobin 31.6 pg (27.0-33.0); Mean Platelet Volume 11.1 fL (9.4-12.4); Monocytes Absolute Auto 0.5 X10*3/uL (0.1-1.2); Monocytes Percent Auto 6.4 % (2-11); Neutrophils Absolute Auto 5.2 x10*3/uL (2.0-8.3); Neutrophils Percent Auto 67.5 % (45-73); Platelet Count 157 X10*3/uL (160-400); Red Cell Distribution Width 11.9 % (11.0-16.0); White Blood Count 7.7 X10*3/uL (4.8-10.8)
[2024-10-02 11:05] LABS: Appearance Urine Clear; Color Urine Yellow; Glucose Urine UA Negative (Negative); Leukocyte Esterase Urine Moderate (2+) (Negative); Nitrite Urine Negative (Negative); PH 5.5 (5.0-9.0); Specific Gravity - Urine 1.015 (1.005-1.025); UMIC TRIGGER UA YES; Urine Blood Negative (Negative); Urine Ketones Negative (Negative); Urine Protein Trace mg/dL (Neg-Trace)
[2024-10-02 11:10] LABS: Alanine Aminotransferase 31 U/L (0-40); Albumin Level 3.7 g/dL (3.5-5.0); Alkaline Phosphatase 63 U/L (39-117); Anion Gap 12 (12-20); Aspartate Amino Transferase 26 U/L (5-37); Bilirubin Total 0.5 mg/dL (0.0-1.0); Blood Urea Nitrogen 10 mg/dL (9-16); Calcium 8.6 mg/dL (8.4-10.2); Carbon Dioxide 24 mmol/L (22-29); Chloride 107 mmol/L (96-108); Cholesterol 244 mg/dL (<200); Estimated Glomerular Filt Rate > 60; Glucose Fasting 102 mg/dL (60-99); HDL Cholesterol 45 mg/dL (>40); LDL Cholesterol Calculated 163 mg/dL (<100); Potassium 5.1 mmol/L (3.3-5.1); Sodium 138 mmol/L (135-145); Total Protein 6.6 g/dL (6.5-8.0); Triglycerides 184 mg/dL (<150)
[2024-10-02 11:24] LABS: Bacteria Urine None Seen (None Seen); RBC Urine 0-2 /HPF (0-2)
== END 2024-10-02 09:07 | disposition home or self-care (01) ==
LOC: HO.10HDL 09:06
PROVIDERS: Visit Provider Internal Medicine
DX: E78.00 Pure hypercholesterolemia, unspecified (principal); I10 Essential (primary) hypertension; N40.1 Benign prostatic hyperplasia with lower urinary tract symptoms
CPT/HCPCS: 36415; 80053; 80061; 81001; 81003; 85025

== ENCOUNTER 2024-10-16 14:18 | Outpatient (AMB) | payer MEDICARE, OTHER, SELFPAY ==
--- NOTE | 2024-10-16 14:21 | MHC.PC.OV ---
Vital Signs 10/16/24 14:56 Height 5 ft 10 in Weight 201 lb BMI 28.8 BP 130/82 Respiration 14 Pulse 60 Pulse Source Pulse Oximeter Temp 97.8 F Temp Source Temporal Artery Scan Pulse Oximetry (%) 97 Oxygen Delivery Method Room Air Intake Visit Reasons: to discuss high chol & possible RXs Cytogenetics Technologist Required: No Accompanied by: Self / Same As Patient Allergies aloe vera Allergy (Mild, Verified 10/16/24 15:04) Swelling Vaseline Allergy (Unknown, Uncoded 10/16/24 15:04) swelling Tobacco use date assessed: 10/16/24 Fall risk assessment: No Falls in past year Last assessed Fall Risk: 10/16/24 Dental Screening Dental Screen Date: 10/16/24 Did you have a dental visit in the last 12 months?: No Did you have a dental problem in the last 6 months where you did not have access to dental care?: No Was dental information given to patient?: No (pt has dentures) PFSH Medical History (Updated 10/16/24 @ 15:26 by Jerod Del Rio MD) HTN (hypertension) Tubular adenoma Hyperlipidemia BPH (benign prostatic hyperplasia) Nocturia Erectile dysfunction Enlarged prostate with lower urinary tract symptoms (LUTS) Elevated PSA Surgical History H/O oral surgery History of surgery Family History (Updated 10/16/24 @ 15:06 by TOM Duarte) Father AD (Alzheimer's disease) Mother No problems noted. Social History (Updated 10/16/24 @ 15:07 by TOM Duarte) Housing: House Alcohol intake: current Alcohol intake frequency: a few times a week Alcohol type: beer Patient Tobacco Use Status: Current everyday Tobacco user Tobacco use type: Cigar Cigarettes Per Day: 3 service: No Current occupational status: retired Cognitive needs: No Hearing needs: No Vision needs: Yes (reading glasses) Questionnaire PHQ-9 Over the last 2 weeks, how often have you been bothered by any of the following problems? 1. Little interest or pleasure in doing things: not at all 2. Feeling down, depressed, or hopeless: not at all 3. Trouble falling or staying asleep, or sleeping too much: not at all 4. Feeling tired or having little energy: not at all 5. Poor appetite or overeating: not at all 6. Feeling bad about yourself - or that you are a failure or have let yourself or your family down: not at all 7. Trouble concentrating on things, such as reading the newspaper or watching television: not at all 8. Moving or speaking so slowly that other people could have noticed. Or the opposite - being so fidgety or restless that you have been moving around a lot more than usual: not at all 9. Thoughts that you would be better off or of hurting yourself in some way: not at all Total score: 0 Source: Developed by Drs. Kevin Smith, Maegan Duggan, Alfredo Rod and colleagues, with an educational will from [employer]. Thrive Questionnaire Date Thrive assessed: 10/16/24 I am a: Patient Within the past 12 months, did the food you bought not last and you didn't have the money to get more?: Never true Within the past 12 months, did you worry whether your food would run out before you got money to buy more?: Never true Do you have trouble paying for medicines?: No Do you have trouble getting transportation to medical appointments?: No Do you have trouble paying your heating and electricity bill?: No Do you have trouble taking care of your child, family member or friend?: No Do you have trouble with day-to-day activities such as bathing, preparing meals, shopping, managing finances, etc.?: No THRIVE Score: 0 AUDIT C Alcohol Use Questionnaire (AUDIT-C) 1. How often do you have a drink containing alcohol?: 2-3 times a week 2. How many drinks containing alcohol do you have on a typical day when you are drinking?: 1 or 2 3. How often do you have six or more drinks on one occasion?: Never Total Score: 3 CAIO-7 AMB Questionnaire CAIO-7 Date CAIO - 7 assessed: 10/16/24 Feeling nervous, anxious, or on edge: 0 = Not at all Not being able to stop or control worryin = Not at all Worrying too much about different things: 0 = Not at all Trouble relaxin = Not at all Being so restless that it is hard to sit still: 0 = Not at all Becoming easily annoyed or irritable: 0 = Not at all Feeling afraid as if something awful might happen: 0 = Not at all Total CAIO-7 score (0-4 normal; 5-9 mild; 10-14 moderate; 15-21 severe): 0 Source: Developed by Drs. Kevin Smith, Maegan Duggan, Alfredo Rod and colleagues, with an educational will from [employer]. Physical exam (Primary Care) Vital Signs: Last Vital Signs Temp 97.8 F 10/16/24 14:56 Pulse 60 10/16/24 14:56 Resp 14 10/16/24 14:56 BP 130/82 10/16/24 14:56 Pulse Ox 97 10/16/24 14:56 Oxygen Delivery Method Room Air 10/16/24 14:56 BMI result Body Mass Index 28.8 Tobacco/Smoking Status: Tobacco use Status Tobacco use date assessed 10/16/24 10/16/24 14:24 Patient Tobacco Use Status Current everyday Tobacco 10/16/24 15:07 Tobacco use type Cigar 10/16/24 15:07 e-Cigarette/Vaping Use 10/16/24 15:07 PHQ-9: PHQ-9 Score PHQ-9: Total score 0 10/16/24 15:21 Thrive Assessment: Date of Thrive Assessment Date Thrive assessed 10/16/24 10/16/24 14:24 Coding Level of Care Code New Pt Level 4 (51024) Complex EM visit Add On G2211 Diagnoses BPH (benign prostatic hyperplasia) N40.0 HTN (hypertension) I10 Hyperlipidemia E78.5 Assessment & Plan Assessment & Plan (1) BPH (benign prostatic hyperplasia): Code(s): N40.0 - Benign prostatic hyperplasia without lower urinary tract symptoms Category: Medical Plan: Condition is stable. Continue current medications (2) HTN (hypertension): Code(s): I10 - Essential (primary) hypertension Category: Medical Plan: BP in range. Continue current medications (3) Hyperlipidemia: Code(s): E78.5 - Hyperlipidemia, unspecified Category: Medical Plan: LDL is elevated. Patient declines statins. Understands the risks. Plan History of Present Illness The patient is a 74-year-old male presenting with hyperlipidemia. He has a documented history of fluctuating cholesterol levels, with the most recent LDL at 175 mg/dL and total cholesterol at 260 mg/dL. He reports these fluctuations typically align with changes in physical activity. During periods of increased outdoor activity, he typically observes improvement in these levels. He currently manages hyperlipidemia through lifestyle changes, with a focus on diet and exercise. The potential use of statin therapy, such as Atorvastatin (Lipitor), was discussed, but the patient intends to evaluate the necessity after a six-month period of increased activity. The patient also has Benign Prostatic Hyperplasia managed by Finasteride, which causes nocturnal urination once or twice nightly. Hypertension managed with Atenolol is currently well-controlled, and he reports no immediate need for refills. He emphasizes a willingness to revisit medication for cholesterol management if future tests indicate persistent elevation. Social History - Retired from a career in [employer] treatment. - Engages in outdoor activities, especially during warmer months. - Drives and provides transportation for his due to her night vision issues. - Diet-conscious, indicating careful dietary management as part of his cholesterol management strategy. Review of Systems - General: Reports no new concerns regarding general health. - Cardiovascular: Denies any current issues or concerns outside of previously mentioned elevated cholesterol. - Urinary: Reports nocturnal urination once or twice nightly, attributed to Finasteride. Physical Exam General: Appearance normal, both eyes and all related structures Nutritional Appearance: Well nourished Orientation/consciousness: Patient oriented x3 Limitations: No limitations Head: Normal to inspection Neck: Bent over, previously used a neck brace Chest: Normal palpation of entire chest wall Respiratory: Normal respiratory effort Neurology: Patient oriented x3 Results - Labs: LDL cholesterol of 175 mg/dL; total cholesterol of 260 mg/dL as reported by patient from recent tests on October 02. Plan The patient will continue lifestyle modifications targeting hyperlipidemia, maintaining current dietary measures and increasing physical activity as weather permits. We discussed reevaluating the need for statin therapy after six months if LDL levels remain elevated. His management for Benign Prostatic Hyperplasia with Finasteride and hypertension with Atenolol will continue as before. The patient will contact the pharmacy directly for refills as required. Patient was informed and verbally consented to the use of an ambient scribe for clinic note documentation during this visit. Discussion Notes We discussed the potential benefits of statin therapy in reducing LDL cholesterol levels and thus decreasing the risks associated with cardiovascular disease. I explained the mechanism of action of statins, including Lipitor, alongside potential side effects like musculoskeletal discomfort, which occurs in a minority of patients. The importance of daily compliance for effectiveness was emphasized. We agreed to monitor cholesterol levels, prioritizing lifestyle interventions with potential medication consideration after reassessment in six months. The patient was instructed to maintain routine monitoring of hypertension and contact the pharmacy for any medication refills. I reaffirmed my availability for any immediate concerns and outlined the follow-up plan pending future cholesterol evaluation. Patient Instructions - Engage in regular physical activity, especially as warmer weather approaches. - Maintain a cholesterol-conscious diet. - Monitor changes in cholesterol levels and report any concerns. - Contact pharmacy for Atenolol and Finasteride refills as needed. - Return for follow-up and re-evaluation of cholesterol management plan in six months.
[2024-10-16 14:56] VITALS: BP 130/82; PULSE 60; RESP 14; TEMP 36.6; O2SAT 97; BMI 28.8
== END 2024-10-16 15:25 | disposition home or self-care (01) ==
LOC: HO.HMCHD 14:18
PROVIDERS: PCP Internal Medicine; Visit Provider Internal Medicine
DX: N40.0 Benign prostatic hyperplasia without lower urinary tract symptoms (principal); I10 Essential (primary) hypertension; E78.5 Hyperlipidemia, unspecified

== ENCOUNTER → 2024-10-16 14:18 | Outpatient (BNVA) | payer MEDICARE, OTHER, SELFPAY | PROVIDERS: PCP Internal Medicine; Visit Provider Internal Medicine | DX: N40.0 Benign prostatic hyperplasia without lower urinary tract symptoms (principal); I10 Essential (primary) hypertension; E78.5 Hyperlipidemia, unspecified | CPT/HCPCS: 99202 ==

== ENCOUNTER 2025-04-18 09:17 | Outpatient (AMB) | payer MEDICARE, OTHER, SELFPAY ==
[2025-04-18 09:06] VITALS: BP 126/80; PULSE 55; TEMP 36.4; O2SAT 98; BMI 29.7
--- NOTE | 2025-04-18 09:06 | MHC.PC.OV ---
Vital Signs 04/18/25 09:06 Height 5 ft 10 in Weight 207 lb BMI 29.7 BP 126/80 Blood Pressure Location Rt brachial Position Sitting Pulse 55 Pulse Source Pulse Oximeter Temp 97.5 F Temp Source Temporal Artery Scan Pulse Oximetry (%) 98 Oxygen Delivery Method Room Air Intake Visit Reasons: 6 Month F/U Piccoloist Required: No Accompanied by: Self / Same As Patient Allergies aloe vera Allergy (Mild, Verified 04/18/25 09:07) Swelling Vaseline Allergy (Unknown, Uncoded 10/16/24 15:04) swelling Medication List - Last Reconciled 04/18/25 by Jovani Albert MD atenolol 50 mg PO DAILY atorvastatin (Lipitor) 20 mg PO BEDTIME finasteride 5 mg PO DAILY 90 days [flaxseed oil PO DAILY] Tobacco use date assessed: 04/18/25 Fall risk assessment: No Falls in past year Last assessed Fall Risk: 04/18/25 Dental Screening Dental Screen Date: 04/18/25 Did you have a dental visit in the last 12 months?: No Did you have a dental problem in the last 6 months where you did not have access to dental care?: No HPI HPI Comments History of Present Illness Details The patient is a 74-year-old male presenting with concerns primarily about hyperlipidemia management as part of overall health maintenance. Previously, the patient has been aware of his elevated cholesterol levels, which have fluctuated over time but not seen significant changes in the past six months, remaining around the 200 level. The patient's cholesterol levels are documented at 244, with LDL levels at 163. He expressed resistance to taking additional medications beyond his current regimen but acknowledges the cardiovascular risk due to his current lipid panel. The patient reports smoking three cigars daily, contributing to a 32% risk of cardiovascular events such as myocardial infarction or cerebrovascular accidents, in conjunction with his existing hypertension and hyperlipidemia. The patient also expressed concerns about cutaneous changes on his forearms, noting thinned skin and easy bruising, attributed by his tax compliance officer to age-related changes; no intervention is advised. 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 Additionally, the patient reports cervical discomfort associated with aging. He successfully manages hypertension with current antihypertensive therapy, evidenced by consistent normal blood pressure readings. For his prostate condition, he uses finasteride. He also takes flaxseed oil as a personal measure for his cholesterol. The patient?s balance between symptom management and medication burden was discussed, particularly related to his acceptance of adding atorvastatin for lipid management. Despite his reluctance, he agreed to trial atorvastatin, understanding the potential side effects such as muscle pain and transient liver enzyme elevation. 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 Social History Housing: House Alcohol intake: current Alcohol intake frequency: a few times a week Alcohol type: beer Patient Tobacco Use Status: Current everyday Tobacco user Tobacco use type: Cigar Cigarettes Per Day: 3 e-Cigarette/Vaping Use: Currently Using service: No Current occupational status: retired Cognitive needs: No Hearing needs: No Vision needs: Yes (reading glasses) Questionnaire PHQ-9 Over the last 2 weeks, how often have you been bothered by any of the following problems? 1. Little interest or pleasure in doing things: not at all 2. Feeling down, depressed, or hopeless: not at all 3. Trouble falling or staying asleep, or sleeping too much: not at all 4. Feeling tired or having little energy: not at all 5. Poor appetite or overeating: not at all 6. Feeling bad about yourself - or that you are a failure or have let yourself or your family down: not at all 7. Trouble concentrating on things, such as reading the newspaper or watching television: not at all 8. Moving or speaking so slowly that other people could have noticed. Or the opposite - being so fidgety or restless that you have been moving around a lot more than usual: not at all 9. Thoughts that you would be better off or of hurting yourself in some way: not at all Total score: 0 Source: Developed by Drs. Kevin Smith, Maegan Duggan, Alfredo Rod and colleagues, with an educational will from [employer]. Thrive Questionnaire Date Thrive assessed: 04/18/25 I am a: Patient Within the past 12 months, did the food you bought not last and you didn't have the money to get more?: Never true Within the past 12 months, did you worry whether your food would run out before you got money to buy more?: Never true Do you have trouble paying for medicines?: No Do you have trouble getting transportation to medical appointments?: No Do you have trouble paying your heating and electricity bill?: No Do you have trouble taking care of your child, family member or friend?: No Do you have trouble with day-to-day activities such as bathing, preparing meals, shopping, managing finances, etc.?: No Are you currently unemployed and looking for a job?: No Are you interested in more education?: No THRIVE Score: 0 AUDIT C Alcohol Use Questionnaire (AUDIT-C) 1. How often do you have a drink containing alcohol?: Monthly or less 2. How many drinks containing alcohol do you have on a typical day when you are drinking?: 1 or 2 3. How often do you have six or more drinks on one occasion?: Less than monthly Total Score: 2 CAIO-7 AMB Questionnaire CAIO-7 Date CAIO - 7 assessed: 04/18/25 Feeling nervous, anxious, or on edge: 0 = Not at all Not being able to stop or control worryin = Not at all Worrying too much about different things: 0 = Not at all Trouble relaxin = Not at all Being so restless that it is hard to sit still: 0 = Not at all Becoming easily annoyed or irritable: 0 = Not at all Feeling afraid as if something awful might happen: 0 = Not at all Total CAIO-7 score (0-4 normal; 5-9 mild; 10-14 moderate; 15-21 severe): 0 Source: Developed by Drs. Kevin Smith, Maegan Duggan, Alfredo Rod and colleagues, with an educational will from [employer]. Review of Systems Const Details: - Integumentary: Reports thin skin on forearms, bruises easily - Musculoskeletal: Reports neck pain - No other complaints reported All systems reviewed & are unremarkable except as reviewed in HPI and above Physical exam (Primary Care) Vital Signs: Last Vital Signs Temp 97.5 F 04/18/25 09:06 Pulse 55 04/18/25 09:06 BP 126/80 04/18/25 09:06 Pulse Ox 98 04/18/25 09:06 Oxygen Delivery Method Room Air 04/18/25 09:06 BMI result Body Mass Index 29.7 Tobacco/Smoking Status: Tobacco use Status Tobacco use date assessed 04/18/25 04/18/25 09:07 Patient Tobacco Use Status Current everyday Tobacco 04/18/25 09:07 Tobacco use type Cigar 04/18/25 09:07 e-Cigarette/Vaping Use Currently Using 04/18/25 09:07 PHQ-9: PHQ-9 Score PHQ-9: Total score 0 04/18/25 09:38 Thrive Assessment: Date of Thrive Assessment Date Thrive assessed 04/18/25 04/18/25 09:32 Const Other: General: Alert and oriented, Well nourished, No acute distress. Eye: Pupils are equal, round and reactive to light, Intact accommodation, Extraocular movements are intact, Normal conjunctiva, Vision unchanged. HENT: Normocephalic, Atraumatic, Tympanic membranes are clear, Normal hearing, Oral mucosa is moist, No pharyngeal erythema, Ear canals patent. Respiratory: Lungs CTA bilaterally, No wheeze, Respirations are non-labored. Cardiovascular: Regular rate, Regular rhythm, S1 auscultated, S2 auscultated, No murmur, Good pulses equal in all extremities, Normal peripheral perfusion, No edema. Gastrointestinal: Soft, Non-tender, Non-distended, Normal bowel sounds, No organomegaly. Musculoskeletal: Normal range of motion, Normal strength, No tenderness, No swelling, No deformity, Normal gait. Integumentary: Skin is thinning on forearms, Bruises easily, Warm, Dry, [place], Intact. Neurologic: Alert, Oriented, Normal sensory, Normal motor function, No focal defects, Cranial Nerves II-XII are grossly intact, Normal deep tendon reflexes. Psychiatric: Cooperative, Appropriate mood & affect, Normal judgment. Coding Level of Care Code Est Pt Level 4 (46148) Complex EM visit Add On G2211 Diagnoses Primary hypertension I10 Hypertension type: primary hypertension Other hyperlipidemia E78.49 Hyperlipidemia type: other hyperlipidemia Benign prostatic hyperplasia without lower urinary tract symptoms N40.0 Lower urinary tract symptom presence: symptoms absent Skin change R23.9 Assessment & Plan Assessment & Plan (1) HTN (hypertension): Comment: - Continue current antihypertensive regimen. - Plan routine blood pressure monitoring. Code(s): I10 - Essential (primary) hypertension Category: Medical Qualifiers: Hypertension type: primary hypertension Qualified Code(s): I10 - Essential (primary) hypertension (2) Hyperlipidemia: Comment: - Will start atorvastatin 20 mg at bedtime to manage elevated cholesterol. - Explained the benefits of atorvastatin in reducing cardiovascular risk and potential side effects like muscle aches. - Plan to re-evaluate lipid panel in six months. Code(s): E78.5 - Hyperlipidemia, unspecified Category: Medical Qualifiers: Hyperlipidemia type: other hyperlipidemia Qualified Code(s): E78.49 - Other hyperlipidemia (3) BPH (benign prostatic hyperplasia): Comment: - Continue finasteride as current management. - Monitor for urinary symptoms. Code(s): N40.0 - Benign prostatic hyperplasia without lower urinary tract symptoms Category: Medical Qualifiers: Lower urinary tract symptom presence: symptoms absent Qualified Code(s): N40.0 - Benign prostatic hyperplasia without lower urinary tract symptoms (4) Skin change: Comment: - Advise protective clothing to minimize skin trauma during activities. - Continue current management under tax compliance officer?s advice. Code(s): R23.9 - Unspecified skin changes Category: Medical Plan: Health maintenance: - Recommended dietary adjustments with an emphasis on avoiding processed foods and reducing fatty intake - Advised risk reduction strategies due to cardiovascular risk factors (smoking, cholesterol) Patient was informed and verbally consented to the use of an ambient scribe for clinic note documentation during this visit. Plan During today's visit, I discussed with the patient the significance of managing his hyperlipidemia in context of his cardiovascular risk profile. By introducing atorvastatin, I explained the mechanism of reducing LDL cholesterol and its implications in lowering his 32% risk of heart attack or stroke. The potential side effects, including muscle aches and transient liver enzyme changes, were thoroughly explained and mitigating strategies discussed. Future lipid panel re-evaluation was scheduled in six months to assess atorvastatin effectiveness. Advised ongoing management of hypertension and benign prostatic hyperplasia without changes to the existing regimen. The prognosis for cervicalgia and advice for managing skin fragility due to senescence were also reviewed. Dietary intake and lifestyle modifications were recommended to support overall health. Medications: New atorvastatin (Lipitor) 20 mg PO BEDTIME 90 tabs 2RF Patient Instructions: - Start taking atorvastatin 20 mg once daily at bedtime. - Continue current medication for prostate and blood pressure. - Wear protective clothing during activities to prevent skin injury. - Reduce intake of processed foods and manage diet for better cardiovascular health. - Follow up in six months for lipid panel reassessment. - Monitor for any new symptoms or concerns and seek medical attention if necessary.
--- OUTSIDE RECORDS SUMMARY | 2025-04-18 10:55 | XMS_ITS | Patient Health Record ---
Author Organization [facility] Address [address] [place] [id number] Care Team Providers Care Supervisor Multifocal Lens Name Role Phone Valerie (RETIRED) Maverick LOPEZ Primary Care Provide r Unavailable Kevin Porras Unavailable [phone] Allergies Allergen (clinical drug ingredient) Drug/Non Drug [...] Problem Status W/U Status Risk Notes Problem [id number] Encounter for screening for malignant neoplasm of colon (Z12.11) Active confirmed Problem History of adenomatous polyp of colon (833193953) History of adenomatous polyp of colon (Z86.010) Active confirmed Problem Diverticular disease of colon (637618434) Diverticulosis of large intestine without perforation or abscess without bleeding (K57.30) Active confirmed Problem 88037960 Preprocedural examination (Z01.818) Active confirmed Problem 868359204 Colon adenomas (D12.6) Active confirmed Problem 572932696 History of colon polyps (Z86.010) Active confirmed Plan Of Treatment Future Test Test Name Order Date COLONOSCOPY 05/21/2015 COLONOSCOPY 06/11/2022 Insurance Providers Payer Name Payer Address Payer Phone Subscriber Number Group Number Insured Name Patient Relationship to Insured Coverage Start Date Coverage End Date MED[place]ARE OF [place] [address] [place] [address] [id number] LARON GARNER Self - patient is the insured [facility] [address] [place] [phone] [id number] LARON GARNER Self - patient is the insured Medical (General) History Medical History History ICD Code Tubular adenomas removed in 2004, 2009, 06/2015. Denies MD,DM,CVA,Lung disease,renal dise ase HTN BPH Surgical History Surgery Date(Month/Year) Oral surgery
== END 2025-04-18 09:46 | disposition home or self-care (01) ==
LOC: HO.HMCHD 09:18
PROVIDERS: PCP Student in an Organized Health Care Education/Training Program; Visit Provider Student in an Organized Health Care Education/Training Program
DX: I10 Essential (primary) hypertension (principal); E78.49 Other hyperlipidemia; N40.0 Benign prostatic hyperplasia without lower urinary tract symptoms; R23.9 Unspecified skin changes

== ENCOUNTER → 2025-04-18 09:17 | Outpatient (BNVA) | payer MEDICARE, OTHER, SELFPAY | PROVIDERS: PCP Internal Medicine; Visit Provider Student in an Organized Health Care Education/Training Program | DX: I10 Essential (primary) hypertension (principal); E78.49 Other hyperlipidemia; N40.0 Benign prostatic hyperplasia without lower urinary tract symptoms; R23.9 Unspecified skin changes; Z13.30 Encounter for screening examination for mental health and behavioral disorders, unspecified; Z13.39 Encounter for screening examination for other mental health and behavioral disorders | CPT/HCPCS: 96127; 99212 ==

== ENCOUNTER 2025-04-19 09:16 | Outpatient (AMB) | payer MEDICARE, OTHER, SELFPAY ==
--- NOTE | 2025-04-19 09:32 | MHC.OFFVIS ---
Intake Visit Reasons: 1y/PVR Intake Note: patient presents today for: 1yr/PVR urology medications: finasteride blood thinners: none today's PVR: 106mls Senior Quality Analyst Required: No Accompanied by: Self / Same As Patient Allergies aloe vera Allergy (Mild, Verified 04/19/25 09:33) Swelling Vaseline Allergy (Unknown, Uncoded 04/19/25 09:33) swelling HPI Comments Details: Remi has a very pleasant male. He is a patient of Dr. Padilla. He seen for the following urologic condition - elevated PSA - bladder outlet obstruction Yearly follow-up PSA remains low PVR controlled Effective urinary parameters - minimal nocturia Improved bladder emptying and stronger stream Reduce finasteride every other day - Wednesday, Wednesday, Wednesday PSA next year Lower urinary tract symptoms Current visit for further evaluation of lower urinary tract symptoms Primary symptom is nocturia x2, improved stream, better emptying Initial symptoms - Weak stream, Incomplete emptying Current therapy finasteride Prior biopsy for elevated PSA 11/13 PSA 08/15 PSA 12.6, negative biopsy, 04/15 1.6, 10/14 1.7, 04/16 0.75, 04/17 0.72, 04/18 0.76 Therapeutic plan continue finasteride review in 12 months [facility] Medical History (Updated 04/18/25 @ 09:47 by Jovani Albert MD) Skin change HTN (hypertension) Tubular adenoma Hyperlipidemia BPH (benign prostatic hyperplasia) Nocturia Erectile dysfunction Enlarged prostate with lower urinary tract symptoms (LUTS) Elevated PSA Surgical History History of colonoscopy (~08/12/22) H/O oral surgery History of surgery Family History Father AD (Alzheimer's disease) Mother No problems noted. Social History Housing: House Alcohol intake: current Alcohol intake frequency: a few times a week Alcohol type: beer Patient Tobacco Use Status: Current everyday Tobacco user Tobacco use type: Cigar Cigarettes Per Day: 3 e-Cigarette/Vaping Use: Currently Using service: No Current occupational status: retired Cognitive needs: No Hearing needs: No Vision needs: Yes (reading glasses) Review of Systems Const Denies chills and Denies fever(s) Card Reports no additional complaints and Denies syncope Resp Denies cough GI Denies abdominal pain and Denies heartburn Reports as per HPI and Denies change in libido Neuro Denies syncope Psych Denies change in libido Endo Denies change in libido Physical Exam Const General: cooperative, healthy appearing, comfortable and no acute distress Orientation/consciousness: patient oriented x3 HEENT Face and sinus: Yes normal facial exam Mouth: moist mucous membranes Neck Neck: Yes normal visual inspection, Yes full ROM and Yes trachea midline Chest Chest palpation & inspection: normal inspection of the chest Resp Effort & Inspection: normal respiratory effort, able to speak in complete sentences and no respiratory distress GI Inspection: Yes normal to inspection Back/Spine/Pelvis Cervical Spine: normal cervical lordosis Thoracic/Lumbar Spine: thoracic and lumbar spine normal to inspection Skin General skin exam: no rashes or lesions noted Neuro General: patient oriented x3, gait normal, tone normal and moves all extremities Extrem General: Yes normal to inspection and Yes capillary refill normal Assessment & Plan Assessment & Plan (1) Elevated PSA: Code(s): R97.20 - Elevated prostate specific antigen [PSA] Category: Medical (2) BPH (benign prostatic hyperplasia): Comment: - Continue finasteride as current management. - Monitor for urinary symptoms. Code(s): N40.0 - Benign prostatic hyperplasia without lower urinary tract symptoms Category: Medical Qualifiers: Lower urinary tract symptom presence: symptoms absent Qualified Code(s): N40.0 - Benign prostatic hyperplasia without lower urinary tract symptoms Plan Twelve month follow-up PVR PSA Orders: Orders Prostate Specific Antigen 12 Months N40.0 - Benign prostatic hyperplasia without lower urinary tract symptoms Patient Instructions: This note is constructed using voice recognition software. While every effort has been made to ensure accuracy datacap developer errors may have been included. Imaging studies, laboratory and physical exam results were discussed and reviewed in detail. No major barriers to patient understanding were identified. An opportunity to ask questions regarding the treatment plan was provided. All questions were answered. The patient expressed understanding and agreement with the above treatment plan. The patient is aware they should contact our office by phone for worsening of their current condition or the appearance of new urologic symptoms. Compliance is encouraged with any medications and followup testing that is ordered. It is a privilege to participate in the urologic care of your patient. If you have any questions or concerns regarding treatment for the above conditions, or other urologic issues, please do not hesitate to contact me. The office telephone contact is [phone]. Sincerely, Dr Kalen Watkins MD, [place] [facility] - Urology Compassionate Specialist Care for the Genitourinary System Coding Level of Care Code Est Pt Level 4 (24649) Complex EM visit Add On G2211 Diagnoses Elevated PSA R97.20 Benign prostatic hyperplasia without lower urinary tract symptoms N40.0 Lower urinary tract symptom presence: symptoms absent
--- OUTSIDE RECORDS SUMMARY | 2025-04-19 10:14 | XMS_ITS | Patient Health Record ---
Author Organization [facility] Address [address] [place] [phone] Care Team Providers Care Rehab Rn Name Role Phone Valerie (RETIRED) Maverick LOPEZ Primary Care Provide r Unavailable Kevin Porras Unavailable [phone] Allergies Allergen (clinical drug ingredient) Drug/Non Drug [...] Problem Status W/U Status Risk Notes Problem 384753170 Encounter for screening for malignant neoplasm of colon (Z12.11) Active confirmed Problem History of adenomatous polyp of colon (294685440) History of adenomatous polyp of colon (Z86.010) Active confirmed Problem Diverticular disease of colon (863841216) Diverticulosis of large intestine without perforation or abscess without bleeding (K57.30) Active confirmed Problem 40529880 Preprocedural examination (Z01.818) Active confirmed Problem 266391411 Colon adenomas (D12.6) Active confirmed Problem 837486579 History of colon polyps (Z86.010) Active confirmed Plan Of Treatment Future Test Test Name Order Date COLONOSCOPY 05/21/2015 COLONOSCOPY 06/11/2022 Insurance Providers Payer Name Payer Address Payer Phone Subscriber Number Group Number Insured Name Patient Relationship to Insured Coverage Start Date Coverage End Date [place]ARE OF [place] [address] [place] [address] [phone] [id number] LARON GARNER Self - patient is the insured [facility] [address] [place] [phone] [id number] LARON GARNER Self - patient is the insured Medical (General) History Medical History History ICD Code Tubular adenomas removed in 2004, 2009, 06/2015. Denies [place],DM,CVA,Lung disease,renal dise ase HTN BPH Surgical History Surgery Date(Month/Year) Oral surgery
== END 2025-04-19 10:08 | disposition home or self-care (01) ==
LOC: HO.HUSH 09:16
PROVIDERS: PCP Internal Medicine; Visit Provider Urology
DX: R97.20 Elevated prostate specific antigen [PSA] (principal); N40.0 Benign prostatic hyperplasia without lower urinary tract symptoms; Z13.9 Encounter for screening, unspecified
CPT/HCPCS: 99214; G2211

== ENCOUNTER → 2025-04-19 09:16 | Outpatient (BNVA) | payer MEDICARE, OTHER, SELFPAY | PROVIDERS: PCP Internal Medicine; Visit Provider Urology | DX: R97.20 Elevated prostate specific antigen [PSA] (principal); N40.0 Benign prostatic hyperplasia without lower urinary tract symptoms; Z72.0 Tobacco use | CPT/HCPCS: 51798; 81003; 99212 ==